=== PATIENT | male | born 1955 | race Caucasian/White ===

== ENCOUNTER → 2022-01-07 | Outpatient (CLI) | payer OTHER | LOC: M RAD 14:41 | PROVIDERS: ATTEND Internal Medicine | DX: F17.200 Nicotine dependence, unspecified, uncomplicated (principal) ==

== ENCOUNTER → 2022-07-08 | Outpatient (CLI) | payer MEDICARE, OTHER | LOC: M RAD 07:20 | PROVIDERS: ATTEND Nurse Practitioner Psychiatric/Mental Health | DX: I71.40 Abdominal aortic aneurysm, without rupture, unspecified (principal) ==

== ENCOUNTER → 2023-01-07 | Outpatient (CLI) | payer MEDICAID, MEDICARE, OTHER | LOC: M WHC 12:55 | PROVIDERS: ATTEND Family Medicine | DX: N43.3 Hydrocele, unspecified (principal) ==

== ENCOUNTER 2023-02-04 08:11 | Day surgery (SDC) | payer MEDICARE, OTHER ==
[~2023-02-04] VITALS: Ht 177.8 cm; Wt 69.2 kg
[~2023-02-04 08:11] MED LIST: HYDR-3490 PO; METO1TAB32 PO; NS 1,000 ML IV ONE
[2023-02-04] MEDS ORDERED: propofoL 200 MG/20 ML VIAL As Ordered ONE ×4 (09:52→11:15)
[2023-02-04 10:40] VITALS: TEMP 96.6
[2023-02-04 11:00] VITALS: BP 103/71; O2SAT 96
== END 2023-02-04 11:20 | disposition home or self-care (01) ==
LOC: M OPP 08:11
PROVIDERS: ATTEND Internal Medicine Gastroenterology
DX: Z12.11 Encounter for screening for malignant neoplasm of colon (principal); Z86.010 Personal history of colon polyps; Z80.0 Family history of malignant neoplasm of digestive organs; D12.0 Benign neoplasm of cecum; K63.5 Polyp of colon; Z79.52 Long term (current) use of systemic steroids; Z79.899 Other long term (current) drug therapy

== ENCOUNTER 2023-05-26 06:01 | Inpatient (IN) | payer OTHER, MEDICARE ==
[~2023-05-26] VITALS: Ht 175.3 cm; Wt 68.0 kg
[~2023-05-26 06:01] MED LIST changes: +HYDR50TAB PO; -NS 1,000 ML IV ONE
[2023-05-26] MEDS ORDERED: LR 1,000 ML IV SCH ×2 (06:10→11:10)
[2023-05-26] MEDS: ALVIMOPAN 12 MG CAPSULE (ENTEREG) PO ONE (06:54)
[2023-05-26] MEDS: CelecoXIB 400 MG CAP PO ONE (06:54)
[2023-05-26] MEDS ORDERED: propofoL 200 MG/20 ML VIAL As Ordered ONE (07:02)
[2023-05-26] MEDS ORDERED: fentaNYL 100 MCG/2 ML INJECTION As Ordered ONE (07:02)
[2023-05-26] MEDS ORDERED: MIDAZOLAM INJ 2MG/2ML VIAL As Ordered ONE (07:02)
[2023-05-26] MEDS ORDERED: LIDOCAINE 2% 100MG/5ML SDV (FOR ANES.) As Ordered ONE (07:03)
[2023-05-26] MEDS ORDERED: ROCURONIUM BROMIDE 50MG/5ML VIAL As Ordered ONE (07:03)
[2023-05-26] MEDS ORDERED: GLYCOPYRROLATE INJ 0.2 MG/ML 2 ML VIAL As Ordered ONE (07:03)
[2023-05-26] MEDS ORDERED: METOCLOPRAMIDE INJ 10MG/2ML VIAL As Ordered ONE (07:04)
[2023-05-26] MEDS ORDERED: ONDANSETRON 4MG 2ML VIAL As Ordered ONE (07:04)
[2023-05-26] MEDS ORDERED: KETOROLAC 60MG 2ML VIAL As Ordered ONE (07:04)
[2023-05-26] MEDS ORDERED: HYDROmorphone HCL 2MG/ML 1ML VIAL As Ordered ONE (07:04)
[2023-05-26] MEDS: LIDOCAINE 1% SDV 30ML VIAL As Ordered ONE (07:17)
[2023-05-26] MEDS: metroNIDAZOLE 500 MG in IV 1 EA IV ONE (07:38)
[2023-05-26] MEDS: ceFAZolin SOD 2 GM in IV 1 EA IV ONE (07:45)
[2023-05-26] MEDS: HEPARIN SOD (PORCINE) 5000UNITS/ML 1ML VIAL/SYRINGE SQ ONE (07:55)
[2023-05-26] MEDS ORDERED: ACETAMINOPHEN 1000MG 100ML IV BAG As Ordered ONE (08:27)
[2023-05-26] MEDS ORDERED: dexmedeTOMIDine (4MCG/ML)200MCG/50ML BTL (PRECEDEX) As Ordered ONE (08:30)
[2023-05-26] MEDS ORDERED: INDOCYANINE GREEN 25MG VIAL (IC-GREEN) As Ordered ONE (09:13)
[2023-05-26] MEDS ORDERED: SUGAMMADEX SODIUM 500 MG/5 ML VIAL (BRIDION) As Ordered ONE (10:40)
[2023-05-26] MEDS ORDERED: PHENYLephrine 500MCG 5ML (100MCG/ML) SYRINGE As Ordered ONE (10:56)
[2023-05-26] MEDS ORDERED: ePHEDrine SULFATE 25 MG/5 ML(5MG/ML) SYRINGE As Ordered ONE (10:56)
[2023-05-26] MEDS ORDERED: fentaNYL 100 MCG/2 ML INJECTION IV PRN (11:10)
[2023-05-26] MEDS ORDERED: HYDROMORPHONE HCL 0.5 MG/ 0.5 ML SYRINGE IV PRN (11:10)
[2023-05-26] MEDS ORDERED: oxyCODONE 5MG TAB PO PRN (11:10)
[2023-05-26] MEDS ORDERED: NORCO, ANEXSIA 5/325MG TABLET (HYDROcodone/ACETAMINOPHEN) PO PRN ×2 (11:25)
[2023-05-26] MEDS ORDERED: ONDANSETRON 4MG 2ML VIAL IV PRN (11:25)
[2023-05-26] MEDS ORDERED: MORPHINE 4 MG/ML 1ML VIAL IV PRN (11:25)
[2023-05-26] MEDS: ONDANSETRON 4MG 2ML VIAL IV PRN (11:51)
[2023-05-26] MEDS ORDERED: KETOROLAC 30 MG/ML 1ML VIAL IV SCH (12:00)
[2023-05-26 12:40] VITALS: BP 124/84; TEMP 98.2; O2SAT 96
[2023-05-26] MEDS: LR 1,000 ML IV SCH (12:40)
[2023-05-26 13:23] VITALS: BP 140/81; TEMP 97.7; O2SAT 96
[2023-05-26] MEDS ORDERED: VITA100054 PO (13:49)
[2023-05-26] MEDS ORDERED: HOME MED LIST COMPLETE! XX SCH (13:50)
[2023-05-26 14:17] VITALS: BP 143/75; TEMP 97.7; O2SAT 96
[2023-05-26] MEDS: KETOROLAC 30 MG/ML 1ML VIAL IV SCH (15:05)
[2023-05-26 20:00] VITALS: BP 116/74; TEMP 98.4; O2SAT 96
[2023-05-26] MEDS: ALVIMOPAN 12 MG CAPSULE (ENTEREG) PO SCH (20:05)
[2023-05-27 02:00] VITALS: BP 119/69; TEMP 98.2; O2SAT 94
[2023-05-27 06:00] VITALS: BP 120/63; TEMP 98.2; O2SAT 95
[2023-05-27 07:36] LABS: BASO % 0.3 % (0.0-1.0); EOS % 0.1 % (0.0-3.0); HEMOGLOBIN 13.2 g/dl (13.5-17.5); LYMPH # 1.5 10^3/uL (1.5-5.0); LYMPH % 12.6 % (24.0-44.0); MEAN CORPUSCULAR HEMOGLOBIN 32.4 pg (27.0-33.0); MEAN CORPUSCULAR HGB CONC 33.8 g/dl (32.0-36.5); MEAN CORPUSCULAR VOLUME 95.8 fl (80.0-96.0); MONO # 0.9 10^3/uL (0.0-0.8); MONO % 7.8 % (2.0-8.0); NEUTROPHILS # 9.3 10^3/uL (1.5-8.5); NEUTROPHILS % 78.8 % (36.0-66.0); PLATELET COUNT, AUTOMATED 200 10^3/uL (150-450); RED BLOOD COUNT 4.07 10^6/uL (4.30-6.10); WHITE BLOOD COUNT 11.8 10^3/uL (4.0-10.0)
[2023-05-27 08:16] LABS: BLOOD UREA NITROGEN 12 MG/DL (9-23); CALCIUM LEVEL 7.8 MG/DL (8.3-10.6); CARBON DIOXIDE LEVEL 27 MMOL/L (20-31); CHLORIDE LEVEL 106 MMOL/L (98-107); CREATININE FOR GFR 1.04 MG/DL (0.70-1.30); GLOMERULAR FILTRATION RATE > 60.0 (>49); GLUCOSE, FASTING 102 MG/DL (74-106); POTASSIUM SERUM 4.5 MMOL/L (3.5-5.1); SODIUM LEVEL 137 MMOL/L (136-145)
[2023-05-27] MEDS ORDERED: ENOXAPARIN 40MG/0.4ML SYRINGE (J1650 PER 10MG) SC SCH (09:00)
[2023-05-27 10:32] VITALS: BP 110/61; TEMP 98.4; O2SAT 97
[2023-05-27] MEDS: ENOXAPARIN 40MG/0.4ML SYRINGE (J1650 PER 10MG) SC SCH (12:16)
[2023-05-27 14:00] VITALS: BP 118/63; TEMP 98.4; O2SAT 97
[2023-05-27 20:03] VITALS: BP 139/74; TEMP 98.2; O2SAT 98
[2023-05-27] MEDS: METOPROLOL SUCC (TopROL XL) 50MG **XL** TAB PO SCH (20:08)
[2023-05-28 01:43] VITALS: BP 140/72; TEMP 98.1; O2SAT 95
[2023-05-28 05:20] VITALS: BP 147/72; TEMP 98.1; O2SAT 94
[2023-05-28 06:32] LABS: BASO % 0.4 % (0.0-1.0); EOS % 0.2 % (0.0-3.0); HEMATOCRIT 39.1 % (42.0-52.0); HEMOGLOBIN 13.2 g/dl (13.5-17.5); LYMPH # 1.5 10^3/uL (1.5-5.0); LYMPH % 13.3 % (24.0-44.0); MEAN CORPUSCULAR HEMOGLOBIN 31.9 pg (27.0-33.0); MEAN CORPUSCULAR HGB CONC 33.8 g/dl (32.0-36.5); MEAN CORPUSCULAR VOLUME 94.4 fl (80.0-96.0); MONO # 0.9 10^3/uL (0.0-0.8); NEUTROPHILS # 8.9 10^3/uL (1.5-8.5); NEUTROPHILS % 77.7 % (36.0-66.0); PLATELET COUNT, AUTOMATED 199 10^3/uL (150-450); RED BLOOD COUNT 4.14 10^6/uL (4.30-6.10); WHITE BLOOD COUNT 11.4 10^3/uL (4.0-10.0)
[2023-05-28 07:00] LABS: BLOOD UREA NITROGEN 14 MG/DL (9-23); CALCIUM LEVEL 8.4 MG/DL (8.3-10.6); CARBON DIOXIDE LEVEL 30 MMOL/L (20-31); CHLORIDE LEVEL 107 MMOL/L (98-107); CREATININE FOR GFR 0.97 MG/DL (0.70-1.30); GLOMERULAR FILTRATION RATE > 60.0 (>49); GLUCOSE, FASTING 103 MG/DL (74-106); POTASSIUM SERUM 4.2 MMOL/L (3.5-5.1); SODIUM LEVEL 140 MMOL/L (136-145)
[2023-05-28] MEDS: ACETAMINOPHEN TAB 650MG DOSE (2X325MG) PO PRN (12:28)
[2023-05-28 14:10] VITALS: BP 126/72; TEMP 98.3; O2SAT 97
[2023-05-28 21:29] VITALS: BP 152/78; TEMP 100.1; O2SAT 98
[2023-05-28 23:00] VITALS: TEMP 98.8
[2023-05-29] VITALS (7 sets, daily range): BP systolic 109–131; BP diastolic 67–81; TEMP 97.7–99.1; O2SAT 97–98
[2023-05-29 06:49] LABS: HEMATOCRIT 34.2 % (42.0-52.0); HEMOGLOBIN 11.9 g/dl (13.5-17.5); MEAN CORPUSCULAR HEMOGLOBIN 32.6 pg (27.0-33.0); MEAN CORPUSCULAR HGB CONC 34.8 g/dl (32.0-36.5); MEAN CORPUSCULAR VOLUME 93.7 fl (80.0-96.0); NEUTROPHILS % 78.7 % (36.0-66.0); PLATELET COUNT, AUTOMATED 169 10^3/uL (150-450); RED BLOOD COUNT 3.65 10^6/uL (4.30-6.10); WHITE BLOOD COUNT 8.2 10^3/uL (4.0-10.0)
[2023-05-29 06:50] LABS: BASO % 0.2 % (0.0-1.0); EOS # 0.1 10^3/uL (0.0-0.5); EOS % 1.2 % (0.0-3.0); LYMPH % 12.5 % (24.0-44.0); MONO # 0.6 10^3/uL (0.0-0.8); NEUTROPHILS # 6.5 10^3/uL (1.5-8.5)
[2023-05-29 07:10] LABS: BLOOD UREA NITROGEN 14 MG/DL (9-23); CALCIUM LEVEL 8.2 MG/DL (8.3-10.6); CARBON DIOXIDE LEVEL 28 MMOL/L (20-31); CHLORIDE LEVEL 104 MMOL/L (98-107); CREATININE FOR GFR 0.98 MG/DL (0.70-1.30); GLOMERULAR FILTRATION RATE > 60.0 (>49); GLUCOSE, FASTING 112 MG/DL (74-106); POTASSIUM SERUM 3.7 MMOL/L (3.5-5.1); SODIUM LEVEL 135 MMOL/L (136-145)
[2023-05-29] MEDS: CEPHALEXIN 500 MG CAP PO SCH (09:00)
[2023-05-29] MEDS ORDERED: ISOVUE-370 76% 100ML VIAL As Ordered ONE (09:05)
[2023-05-30 06:00] VITALS: BP 119/85; TEMP 98.2; O2SAT 98
[2023-05-30 07:15] LABS: BASO % 0.2 % (0.0-1.0); EOS # 0.2 10^3/uL (0.0-0.5); EOS % 2.2 % (0.0-3.0); HEMATOCRIT 32.4 % (42.0-52.0); HEMOGLOBIN 11.4 g/dl (13.5-17.5); LYMPH # 1.2 10^3/uL (1.5-5.0); LYMPH % 11.4 % (24.0-44.0); MEAN CORPUSCULAR HEMOGLOBIN 32.7 pg (27.0-33.0); MEAN CORPUSCULAR HGB CONC 35.2 g/dl (32.0-36.5); MEAN CORPUSCULAR VOLUME 92.8 fl (80.0-96.0); MONO # 0.8 10^3/uL (0.0-0.8); MONO % 7.3 % (2.0-8.0); NEUTROPHILS % 78.3 % (36.0-66.0); PLATELET COUNT, AUTOMATED 184 10^3/uL (150-450); RED BLOOD COUNT 3.49 10^6/uL (4.30-6.10); WHITE BLOOD COUNT 10.3 10^3/uL (4.0-10.0)
[2023-05-30 07:37] LABS: BLOOD UREA NITROGEN 12 MG/DL (9-23); CALCIUM LEVEL 7.8 MG/DL (8.3-10.6); CARBON DIOXIDE LEVEL 25 MMOL/L (20-31); CHLORIDE LEVEL 106 MMOL/L (98-107); CREATININE FOR GFR 0.99 MG/DL (0.70-1.30); GLOMERULAR FILTRATION RATE > 60.0 (>49); GLUCOSE, FASTING 98 MG/DL (74-106); POTASSIUM SERUM 3.7 MMOL/L (3.5-5.1); SODIUM LEVEL 138 MMOL/L (136-145)
[2023-05-30] MEDS ORDERED: CEPH500C PO (12:26)
== END 2023-05-30 14:15 | disposition home or self-care (01) | DRG 331 ==
LOC: M OR 06:01 → M MS5PR 12:35
PROVIDERS: ADMIT Surgery; ATTEND Surgery
PROC: 0DTJ4ZZ Resection of Appendix, Percutaneous Endoscopic Approach (ICD-10-PCS; 2023-05-26)
PROC: 8E0W4CZ Robotic Assisted Procedure of Trunk Region, Percutaneous Endoscopic Approach (ICD-10-PCS; 2023-05-26)
PROC: 4A1635H Monitoring of Lymphatic Flow using Indocyanine Green Dye, Percutaneous Approach (ICD-10-PCS; 2023-05-26)
PROC: 0DTF4ZZ Resection of Right Large Intestine, Percutaneous Endoscopic Approach (ICD-10-PCS; principal; 2023-05-26 07:30)
DX: D12.2 Benign neoplasm of ascending colon (principal); I10 Essential (primary) hypertension; F41.9 Anxiety disorder, unspecified; J06.9 Acute upper respiratory infection, unspecified; Z80.0 Family history of malignant neoplasm of digestive organs; Z80.3 Family history of malignant neoplasm of breast; Z80.1 Family history of malignant neoplasm of trachea, bronchus and lung; Z79.899 Other long term (current) drug therapy

== ENCOUNTER 2025-01-23 06:40 | Day surgery (SDC) | payer OTHER, MEDICARE ==
[~2025-01-23] VITALS: Ht 175.3 cm; Wt 68.0 kg
[~2025-01-23 06:40] MED LIST changes: +CEPH500C PO; +D3 H10002 PO; +D31000CA5 PO; +LOSA50TA28 PO; +PARO5TAB PO; +SILD100T PO; +[UNRECOGNIZED DRUG - CODE] PO
[2025-01-23 07:41] VITALS: TEMP 97.2
[2025-01-23] MEDS ORDERED: LIDOCAINE 2% 100 MG/5 ML SDV (FOR ANES.) As Ordered ONE (07:41)
[2025-01-23] MEDS ORDERED: GLYCOPYRROLATE INJ 0.2 MG/ML 2 ML VIAL As Ordered ONE (07:41)
[2025-01-23 08:05] VITALS: BP 105/63; O2SAT 97
== END 2025-01-23 08:06 | disposition home or self-care (01) ==
LOC: M OPP 06:40
PROVIDERS: ATTEND Internal Medicine Gastroenterology
DX: D12.3 Benign neoplasm of transverse colon (principal); Z80.0 Family history of malignant neoplasm of digestive organs; Z98.0 Intestinal bypass and anastomosis status; Z86.0100 Personal history of colon polyps, unspecified; Z79.899 Other long term (current) drug therapy
CPT/HCPCS: 45385; 88305; J1596